=== PATIENT | male | born 1980 | race African-American/Black ===

== ENCOUNTER 2020-11-01 12:28 | Emergency (ER) | payer OTHER ==
[~2020-11-01] VITALS: Ht 193 cm; Wt 150.0 kg
--- NOTE | 2020-11-01 13:57 | RAD ---
XR CHEST 1V History: Reason: CHEST PAIN / Spl. Instructions: / History: Comparison: None. Findings: No consolidation or pleural effusion. Normal heart size. No pneumothorax. Impression: 1. No acute cardiopulmonary process. Electronically signed by: Declan Munson DO (11/01/2020 1:55 PM) [id number]
--- NOTE | 2020-11-01 13:58 | RAD ---
INDICATION: Reason: LOWER BACK PAIN RADIATING TO RIGHT LEG / Spl. Instructions: / History: COMPARISON: None. IMPRESSION: Lumbar spine: 3 views obtained. Grade 1 anterolisthesis of L5 on S1 with suspected pars defects. Ther e is some degenerative changes with early osteophyte formation at vertebral body endplates as well as facet hypertrophy. Mild retrolisthesis of L4 on 5, L3 on 4 and L2 on 3. Electronically signed by: James Bartholomew MD (11/01/2020 1:56 PM) [id number]
[2020-11-01 14:44] LABS: BASO # 0.1 x10^3/uL (0.0-0.2); BASO % 1 % (0-3); EOS # 0.1 x10^3/uL (0.0-0.7); EOS % 2 % (0-3); HEMATOCRIT 41.3 % (39.0-53.0); HEMOGLOBIN 13.8 g/dL (13.0-17.5); LYMPH # 1.8 x10^3/uL (1.0-4.8); LYMPH % 27 % (24-48); MEAN CORPUSCULAR HEMOGLOBIN 29 pg (25-35); MEAN CORPUSCULAR HGB CONC 34 g/dL (31-37); MEAN CORPUSCULAR VOLUME 86 fL (79-100); MONO # 0.6 x10^3/uL (0.0-1.1); MONO % 10 % (0-9); NEUT % 60 % (31-73); PLATELET COUNT 339 x10^3/uL (140-400); RED BLOOD COUNT 4.79 x10^6/uL (4.30-5.70); RED CELL DISTRIBUTION WIDTH 14.1 % (11.5-14.5); WHITE BLOOD COUNT 6.7 x10^3/uL (4.0-11.0)
[2020-11-01 15:01] LABS: ALBUMIN 4.5 g/dL (3.4-5.0); ALBUMIN/GLOBULIN RATIO 1.2 (1.0-1.7); CALCIUM 9.8 mg/dL (8.5-10.1); CREATININE 1.2 mg/dL (0.7-1.3); MAGNESIUM 2.3 mg/dL (1.8-2.4); TOTAL BILIRUBIN 0.5 mg/dL (0.2-1.0); TOTAL PROTEIN 8.3 g/dL (6.4-8.2)
[2020-11-01 15:44] LABS: BILIRUBIN,URINE NEGATIVE (NEG); CLARITY,URINE CLEAR; COLOR,URINE YELLOW; NITRITE,URINE NEGATIVE (NEG); PH,URINE 6.5 (<5.0-8.0); PROTEIN,URINE 30 mg/dL (NEG-TRACE)
[2020-11-01] MEDS ORDERED: KETOROLAC 30 MG/ML VIAL. IVP ONE (16:00)
[2020-11-01] MEDS ORDERED: methylPREDNISolone SOD SUCC PF 125 MG/2 ML VIAL. IV ONE (16:00)
[2020-11-01 16:08] LABS: HYALINE CASTS, URINE OCCASIONAL /HPF
[2020-11-01 16:09] LABS: BACTERIA,URINE 0 /HPF (0-FEW); RBC,URINE 0 /HPF (0-2); WBC,URINE OCC /HPF (0-4)
[2020-11-01 16:30] VITALS: BP 182/98
--- NOTE | 2020-11-01 16:47 | PHYS DOC ---
Past Medical History Past Medical History: No Pertinent History Past Surgical History: No Surgical History Smoking Status: Current Some Day Smoker Alcohol Use: Occasionally General Adult EDM: Chief Complaint: LOWER EXT PAIN HPI: HPI: Patient is a 40 year old male who presented to ER for evaluation of low back pain that radiated to his right buttock and right leg area off and on for 1 month. Symptom got worse whenever he sit on his buttock. Patient denies any weakness or numbness in his lower extremity, denies any bowel or bladder incontinence. Patient denies any injury. Patient denies any abdominal pain, no nausea vomiting, no chest pain, no headache, no trouble breathing, no blurry vision, no slurred speech. Patient says he was told that he might have diabetic but he is not on any medication. Patient also said he was told that he might have high blood pressure but he not take any medication. Patient denies any history of blood clot disorder, no recent travel or operation. Patient denies any family history of coronary artery disease or blood clot disorder. Review of Systems: Review of Systems: Constitutional: Denies fever or chills. [] Eyes: Denies change in visual acuity. [] HENT: Denies nasal congestion or sore throat. [] Respiratory: Denies cough or shortness of breath. [] Cardiovascular: Denies chest pain or edema. [] GI: Denies abdominal pain, nausea, vomiting, bloody stools or diarrhea. [] : Denies dysuria. [] Musculoskeletal: Positive for low back pain radiates to right lower extremity. Integument: Denies rash. [] Neurologic: Denies headache, focal weakness or sensory changes. [] Endocrine: Denies polyuria or polydipsia. [] Lymphatic: Denies swollen glands. [] Psychiatric: Denies depression or anxiety. [] Heart Score: Risk Factors: Risk Factors: DM, Current or recent (<one month) smoker, HTN, HLP, family hist ory of CAD, obesity. Risk Scores: Score 0 - 3: 2.5% MACE over next 6 weeks - Discharge Home Score 4 - 6: 20.3% MACE over next 6 weeks - Admit for Clinical Observation Score 7 - 10: 72.7% MACE over next 6 weeks - Early Invasive Strategies Current Medications: Current Medications Medications (Trade) Dose Ordered Sig/Johnson Start Time Stop Time Status Last Admin Dose Admin Ketorolac Tromethamine (Toradol 30mg Vial) 30 mg 1X ONCE 11/01/20 16:00 11/01/20 16:01 DC Methylprednisolone Sodium Succinate (SOLU-Medrol 125MG VIAL) 125 mg 1X ONCE 11/01/20 16:00 11/01/20 16:01 DC Allergies: Allergies: Allergies Coded Allergies Type Severity Reaction Last Updated Verified No Known Drug Allergies 11/01/20 No Physical Exam: PE: Constitutional: Well developed, well nourished, no acute distress, non-toxic appearance. [] HENT: Normocephalic, atraumatic, bilateral external ears normal, oropharynx moist, no oral exudates, nose normal. [] Eyes: PERRLA, EOMI, conjunctiva normal, no discharge. [] Neck: Normal range of motion, no tenderness, supple, no stridor. [] Cardiovascular:Heart rate regular rhythm, no murmur [] Lungs & Thorax: Bilateral breath sounds clear to auscultation [] Abdomen: Bowel sounds normal, soft, no tenderness, no masses, no pulsatile masses. [] Skin: Warm, dry, no erythema, no rash. [] Back: No tenderness, no CVA tenderness. [] Extremities: No tenderness, no cyanosis, no clubbing, ROM intact, no edema. Bilateral Equal and symmetrical both calfs, no swelling noted, no tender to palpation on the back of the right calf. Neurologic: Alert and oriented X 3, normal motor function, normal sensory function, no focal deficits noted. Equal bilateral patellar reflexes Psychologic: Affect normal, judgement normal, mood normal. [] Current Patient Data: Labs: Laboratory Tests Test 11/01/20 14:20 11/01/20 15:35 White Blood Count 6.7 x10^3/uL (4.0-11.0) Red Blood Count 4.79 x10^6/uL (4.30-5.70) Hemoglobin 13.8 g/dL (13.0-17.5) Hematocrit 41.3 % (39.0-53.0) Mean Corpuscular Volume 86 fL (79-100) Mean Corpuscular Hemoglobin 29 pg (25-35) Mean Corpuscular Hemoglobin Concent 34 g/dL (31-37) Red Cell Distribution Width 14.1 % (11.5-14.5) Platelet Count 339 x10^3/uL (140-400) Neutrophils (%) (Auto) 60 % (31-73) Lymphocytes (%) (Auto) 27 % (24-48) Monocytes (%) (Auto) 10 % (0-9) H Eosinophils (%) (Auto) 2 % (0-3) Basophils (%) (Auto) 1 % (0-3) Neutrophils # (Auto) 4.0 x10^3/uL (1.8-7.7) Lymphocytes # (Auto) 1.8 x10^3/uL (1.0-4.8) Monocytes # (Auto) 0.6 x10^3/uL (0.0-1.1) Eosinophils # (Auto) 0.1 x10^3/uL (0.0-0.7) Basophils # (Auto) 0.1 x10^3/uL (0.0-0.2) Sodium Level 140 mmol/L (136-145) Potassium Level 4.0 mmol/L (3.5-5.1) Chloride Level 100 mmol/L (98-107) Carbon Dioxide Level 29 mmol/L (21-32) Anion Gap 11 (6-14) Blood Urea Nitrogen 17 mg/dL (8-26) Creatinine 1.2 mg/dL (0.7-1.3) Estimated GFR (Cockcroft-Gault) 82.0 BUN/Creatinine Ratio 14 (6-20) Glucose Level 195 mg/dL (70-99) H Calcium Level 9.8 mg/dL (8.5-10.1) Magnesium Level 2.3 mg/dL (1.8-2.4) Total Bilirubin 0.5 mg/dL (0.2-1.0) Aspartate Amino Transferase (AST) 38 U/L (15-37) H Alanine Aminotransferase (ALT) 89 U/L (16-63) H Alkaline Phosphatase 48 U/L (46-116) Troponin I Quantitative < 0.017 ng/mL (0.000-0.055) Total Protein 8.3 g/dL (6.4-8.2) H Albumin 4.5 g/dL (3.4-5.0) Albumin/Globulin Ratio 1.2 (1.0-1.7) Urine Collection Type Unknown Urine Color Yellow Urine Clarity Clear Urine pH 6.5 (<5.0-8.0) Urine Specific [place] 1.020 (1.000-1.030) Urine Protein 30 mg/dL (NEG-TRACE) Urine Glucose (UA) 100 mg/dL (NEG) Urine Ketones (Stick) Negative mg/dL (NEG) Urine Blood Negative (NEG) Urine Nitrite Negative (NEG) Urine Bilirubin Negative (NEG) Urine Urobilinogen Dipstick 1.0 mg/dL (0.2 mg/dL) Urine Leukocyte Esterase Negative (NEG) Urine RBC 0 /HPF (0-2) Urine WBC Occ /HPF (0-4) Urine Squamous Epithelial Cells Occ /LPF Urine Bacteria 0 /HPF (0-FEW) Urine Hyaline Casts Occasional /HPF Urine Mucus Slight /LPF Laboratory Tests 11/01/20 14:20 Laboratory Tests 11/01/20 14:20 Vital Signs: Vital Signs Date Time Temp Pulse Resp B/P (MAP) Pulse Ox O2 Delivery O2 Flow Rate FiO2 11/01/20 13:36 100.3 92 22 192/111 (138) 96 Room Air 100.3 EKG: EKG: [] Radiology/Procedures: Radiology/Procedures: [facility] [address] [place] [address] IMAGING REPORT Signed PATIENT: TOO SCHUSTER ACCOUNT: [id number] : 1980 LOCATION: ER AGE: 40 SEX: M EXAM STATUS: REG ER ORD. PHYSICIAN: WALTER EASLEY DO REASON: LOWER BACK PAIN RADIATING TO RIGHT LEG PROCEDURE: LUMBAR SPINE 2-3V INDICATION: Reason: LOWER BACK PAIN RADIATING TO RIGHT LEG / Spl. Instructions: / History: COMPARISON: None. IMPRESSION: Lumbar spine: 3 views obtained. Grade 1 anterolisthesis of L5 on S1 with suspected pars defects. There is some degenerative changes with early osteophyte formation at vertebral body endplates as well as facet hypertrophy. Mild retrolisthesis of L4 on 5, L3 on 4 and L2 on 3. Electronically signed by: Marcus Owen MD (11/01/2020 1:56 PM) [id number] DICTATED and SIGNED BY: MARCUS OWEN MD DATE: 11/01/[id number] [facility] [address] [place] [address] IMAGING REPORT Signed PATIENT: TOO SCHUSTER ACCOUNT: [id number] : 1980 LOCATION: ER AGE: 40 SEX: M EXAM STATUS: REG ER ORD. PHYSICIAN: WALTER EASLEY DO REASON: CHEST PAIN PROCEDURE: CHEST AP ONLY XR CHEST 1V History: Reason: CHEST PAIN / Spl. Instructions: / History: Comparison: None. Findings: No consolidation or pleural effusion. Normal heart size. No pneumothorax. Impression: 1. No acute cardiopulmonary process. Electronically signed by: Declan Munson DO (11/01/2020 1:55 PM) [id number] DICTATED and SIGNED BY: DECLAN MUNSON DO DATE: 11/01/20 [id number] Course & Med Decision Making: Course & Med Decision Making Pertinent Labs and Imaging studies reviewed. (See chart for details) Patient is a 40-year-old male who presented to ER for evaluation of low back pain radiating to his lower extremity on the right side. X-ray show some arthritic change in the lumbar area. Patient symptoms consistent with acute sciatica. Patient will need to be follow-up with his family physician for o utpatient evaluation with MRI of his lumbar spine. Patient will be put on anti- inflammatory medication and steroid. Patient was found to have high blood pressure and high blood sugar. Patient will need to follow-up with her family physician for patient reevaluation of these conditions. Sushma Disclaimer: Sushma Disclaimer: This electronic medical record was generated, in whole or in part, using a voice recognition dictation system. Departure Departure Impression: Primary Impression: Acute right-sided low back pain with sciatica Additional Impressions: Hypertension Hyperglycemia Person under investigation for COVID-19 Disposition: 01 DC HOME SELF CARE/HOMELESS Condition: STABLE Referrals: NO PCP (PCP) Please follow up with your family doctor this week for outpatient evaluation with MRI of your lower back. You will need to see your doctor to have your blood pressure and blood sugar reevaluated. Patient Instructions: Hyperglycemia, Hypertension, Sciatica Additional Instructions: [facility] [address] [place] [address] [facility] [address] [place] [address] [facility] [address] [facility] [place] [place] [address] [facility] [address] [place] [address] [facility] [address] [place] [address] [facility] [address] [place] [address] [facility] [address] [place] [address] [facility] [address] [place] [address] [facility] [address] [place] [address] [facility] Department [address] [place] [address] Scripts Prednisone (PREDNISONE) 20 Mg Tablet 1 TAB PO DAILY, #5 TAB Prov: AWLTER EASLEY DO 11/01/20 Ibuprofen (IBUPROFEN) 800 Mg Tablet 800 MG PO PRN Q6HRS PRN for PAIN for 10 Days, #30 TAB Prov: WALTER EASLEY DO 11/01/20 WALTER EASLEY DO Nov 01, 2020 16:47
[2020-11-01] MEDS ORDERED: PRED20TA PO (17:01)
[2020-11-01] MEDS ORDERED: IBUP-1060 PO (17:01)
--- NOTE | 2020-11-02 05:14 | EKG ---
[facility] [address] [place] [address] Test Date: 2020-11-01 Test Time: 13:34:40 Pat Name: TOO SCHUSTER Department: Room: Gender: M Optimization Engineer: : 1980 Requested By: WALTER EASLEY Order Number: [id number] Reading MD: Measurements Intervals Fidelity Rate: 92 P: 40 CA: 206 QRS: 24 QRSD: 80 T: -16 QT: 326 QTc: 408 Interpretive Statements SINUS RHYTHM PROLONGED CA INTERVAL QRS(T) CONTOUR ABNORMALITY CONSISTENT WITH ANTEROSEPTAL INFARCT PROBABLY OLD T ABNORMALITY IN INFERIOR LEADS ABNORMAL ECG RI6.01 No previous ECG available for comparison
--- NOTE | 2020-11-03 09:59 | NUR ---
IP: Inoformed pt of negative COVID test. Pt verbalized understanding.
== END 2020-11-01 17:40 | disposition home or self-care (01) ==
LOC: ER 12:28
DX: M54.41 Lumbago with sciatica, right side (principal); I10 Essential (primary) hypertension; R73.9 Hyperglycemia, unspecified; Z20.828 Contact with and (suspected) exposure to other viral communicable diseases; F17.200 Nicotine dependence, unspecified, uncomplicated
CPT/HCPCS: 36415; 71045; 72100; 80053; 81001; 83735; 84484; 85025; 93005; 96374; 96375; 99285; C9803; J1885; J2930; U0003